=== PATIENT | female | born 1960 | race Caucasian/White ===

== ENCOUNTER 2017-05-28 07:43 | Emergency (ER) | payer OTHER ==
[~2017-05-28] VITALS: Ht 170.2 cm; Wt 76.4 kg
[2017-05-28 07:47] VITALS: BP 153/94; RESP 16; O2SAT 99
--- NOTE | 2017-05-28 08:02 | ED.REPORT ---
HPI-Facial Injury Date of Service May 28, 2017 ED Provider: Jori Lennon Patient is a 56 year old female with a hx of HTN, DM, hyperlipidemia, and a distant hx of breast cancer who presents to the ED complaining of waking up to a mouth full of bright red blood three mornings in a row. Pt reports having clots present as well. Pt denies a mechanism of injury. She also denies epistaxis, cough, gum bleeding, upper abdominal pain, nausea, vomiting, SOB, melena, hematochezia, or any other symptoms. Pt reports her mother bled to from her throat and had a hx of multiple aneurysms. She takes 81 mg ASA daily. Nursing Notes Stated Complaint: BLOOD IN MOUTH Chief Complaint: ENT & Mouth Nursing Notes Reviewed: Yes Allergies: Coded Allergies: Penicillins (Verified Allergy, Unknown, Rash, 05/28/17) Uncoded Allergies: CASHEWS (Allergy, Unknown, 05/28/17) General Time Seen by Provider: 08:02 Chief Complaint Bleeding Hx Obtained From: Patient Arrived By: Walk-in Onset Occurred: 3 days ago Symptom Duration: Intermittent Severity: Current: No pain currently Severity: Maximum: No pain Immunizations: Unknown Recent Healthcare: Recent doctor visit Similar Sx Previous: No Past Medical History Past Medical History Notes: PCP Dr. Prince Nunez in [place] at [facility] Past Medical History HTN DM Herniated discs in neck anxiety L sided breast cancer - distant hx Reports: Hyperlipidemia Past Surgical History None reported Family History Mother bled to from bleeding in her throat. Multiple aneurysms Smoking History Former Smoker Social History Alcohol Use: 1-3 per week Ambulatory Status Independent Review of Systems Review of Systems Note: -gum bleeding Ears / Nose / Throat: Denies: Nose bleeding Complete sys rev & neg: except as marked. Respiratory: Denies: Non-productive cough, Prod cough, bloody, Shortness of breath GI: Denies: Abdominal pain, Hematochezia, Melena, Nausea, Vomiting Hematologic: Reports Bleeding (in mouth ) Physical Exam Initial Vital Signs Vital Signs (First) Date Time Temp Pulse Resp B/P Pulse Ox O2 Delivery O2 Flow Rate FiO2 05/28/17 07:47 36.7 114 16 153/94 99 Room Air Initial VS: Reviewed, Vital signs abnormal Respiratory: No respiratory distress Abdomen / GI: Soft, Non-tender Skin: Warm, Dry Psychiatric: Mood/affect normal, Behavior normal, Normal thought content Head / Eyes: Atraumatic, Normocephalic, PERRL, EOMI ENT: Atraumatic, Airway patent, Nose exam NL, No sinus tenderness, Gums/ dentition NL No blood in mouth Neck: Atraumatic, Supple, Full range of motion Neurologic: Oriented X3, Speech NL General/Constitutional: Awake, Alert Behavior: Positive: Anxious Interpretation & Diagnostics Lab Results Interpretation Result Diagram: 05/28/17 0830 05/28/17 0830 Test 05/28/17 08:30 White Blood Count 6.1th/mm3 (3.8-10.1) Red Blood Count 4.19mil/mm3 (3.90-5.20) Hemoglobin 13.7g/dL (12.0-15.6) Hematocrit 40.5% (35.0-46.0) Mean Corpuscular Volume 96.7fL (81-100) Mean Corpuscular Hemoglobin 32.7pg (27.0-35.0) Mean Corpuscular Hemoglobin Concent 33.8% (32.0-37.0) Red Cell Distribution Width 12.1% (12.3-15.4) Platelet Count 266bil/L (150-400) Neutrophils (%) (Auto) 65.3% (40-74) Lymphocytes (%) (Auto) 23.1% (14-46) Monocytes (%) (Auto) 10.9% (4-12) Eosinophils (%) (Auto) 0.3% (0-5) Basophils (%) (Auto) 0.2% (0-3) Prothrombin Time 10.5sec (8.1-12.5) Prothromb Time International Ratio 0.98ratio Activated Partial Thromboplast Time 25.1sec (22.8-33.0) Sodium Level 140mEq/L (134-144) Potassium Level 3.4mEq/L (3.5-5.2) Chloride Level 97mEq/L (97-108) Carbon Dioxide Level 23mmol/L (18-29) Blood Urea Nitrogen 12mg/dL (6-24) Creatinine 0.71mg/dL (0.57-1.00) Estimat Glomerular Filtration Rate 122mL/min (>59) Glucose Level 161mg/dL (60-99) Calcium Level 9.9mg/dL (8.5-10.1) Total Bilirubin 0.5mg/dL (0.0-1.2) Aspartate Amino Transf (AST/SGOT) 129U/L (0-50) Alanine Aminotransferase (ALT/SGPT) 166U/L (0-32) Alkaline Phosphatase 75U/L (25-150) Total Protein 7.8g/dL (6.4-8.4) Albumin 4.5g/dL (3.4-5.0) Hold Mendez Top Tube Received (Received) X-Ray Chest Interpretation Chest Xray Interpretation: IMPRESSION: No acute cardiopulmonary disease process. Dictated by: Rosemary Alcantara MD, PhD on 05/28/2017 at 9:26 Approved by: Rosemary Alcantara MD, PhD on 05/28/2017 at 9:27 View: AP & lat Interpretation / Wet Read by: Interpret - Radiologist Re-Eval/Medical Decision Med Decision/Clinical Course Med Decision/Clinical Course: Intraoral bleeding thought to be due to the gumline at the prior site of root canal. No evidence of significant hemorrhage. Referred to dentist and then subsequently ENT and GI as needed. Return and follow-up cautions given Re-Evaluation/Progress : Time of Eval: 09:49 Re-Evaluation/Progress Note: Rechecked pt. Blood is present in the ridge of the gum between teeth 17 and 18. When gum is milked, more blood appears. Discussed plan for discharge f/u with dentist and possibly GI. Patient understands and agrees with plan. All questions addressed at this time. Counseled Regarding: Diagnosis, Need for follow-up, When/why to return to ED Discharge & Departure Impression: Primary Impression: Oral bleeding Disposition: Home Discharge Condition All VS Reviewed: Yes Condition: Stable Additional Instructions: Thank you for entrusting us with your care. Incidentally your liver function test is mildly out of range and you should discuss this with your doctor. Follow up with your dentist in the next 1-2 days. Call this morning to schedule an appointment. If your dental exam is unremarkable, you will need to follow up with ENT and possibly be scoped. Call the number provided to schedule an appointment. Return to the emergency department for new or worsening symptoms. Referrals: Rajesh Christine MD Scribe Attestation Portions of this note were transcribed by Wendie Flynn. I, Dr. Lennon personally performed the history, physical exam and medical decision-making; I reviewed and confirmed the accuracy of the information in the transcribed note. Signed by: Mac Francois, 05/28/17 copies to: Rajesh Christine MD, Timothy S DO May 28, 2017 08:02 WENDIE FLYNN May 28, 2017 08:10
[2017-05-28 08:45] LABS: BASOPHILS % (AUTO) 0.2 % (0-3); EOSINOPHILS % (AUTO) 0.3 % (0-5); MONOCYTES % (AUTO) 10.9 % (4-12); Mean Corpuscular Hemoglobin 32.7 pg (27.0-35.0); Mean Corpuscular Volume 96.7 fL (81-100); NEUTROPHILS % (AUTO) 65.3 % (40-74); Platelet Count 266 bil/L (150-400)
--- NOTE | 2017-05-28 09:28 | DRSVH ---
PROCEDURE: X-RAY CHEST, TWO VIEWS ([id number]) INDICATIONS: hemoptysis TECHNIQUE: 2 views of the chest were acquired. COMPARISON: None. FINDINGS: Surgical changes and devices: None. Lungs and pleura: No pleural effusions or pneumothorax. Lungs are clear. Mediastinum: Mediastinal contours are normal. Heart size is normal. Bones and chest wall: No suspicious bony abnormalities. Soft tissues appear unremarkable. IMPRESSION: No acute cardiopulmonary disease process. Dictated by: Rosemary Alcantara MD, PhD on 05/28/2017 at 9:26 Approved by: Rosemary Alcantara MD, PhD on 05/28/2017 at 9:27
[2017-05-28 09:54] LABS: INR 0.98 ratio
[2017-05-28 10:21] VITALS: BP 142/101; PULSE 109; RESP 18; O2SAT 96
== END 2017-05-28 10:22 | disposition home or self-care (01) ==
LOC: SED 07:43
DX: R04.1 Hemorrhage from throat (principal); I10 Essential (primary) hypertension; E11.9 Type 2 diabetes mellitus without complications; E78.5 Hyperlipidemia, unspecified; F41.9 Anxiety disorder, unspecified; Z87.891 Personal history of nicotine dependence; Z88.0 Allergy status to penicillin